=== PATIENT | male | born 1955 | race Caucasian/White ===

== ENCOUNTER → 2021-03-10 | Outpatient (CLI) | payer OTHER | LOC: CAT 14:19 | PROVIDERS: ATTEND Internal Medicine Cardiovascular Disease | DX: Z13.6 Encounter for screening for cardiovascular disorders (principal) ==

== ENCOUNTER → 2021-03-18 | Outpatient (CLI) | payer OTHER | LOC: SJCVCIMAG 09:33 | PROVIDERS: ATTEND Internal Medicine Cardiovascular Disease | DX: Z13.6 Encounter for screening for cardiovascular disorders (principal); I34.0 Nonrheumatic mitral (valve) insufficiency ==